=== PATIENT | female | born 1995 ===

== ENCOUNTER 2016-09-06 15:28 | Emergency (ER) | payer OTHER ==
[2016-09-06 16:05] VITALS: BP 128/74; PULSE 89; RESP 16; TEMP 98; O2SAT 98
--- NOTE | 2016-09-06 17:11 | RAD ---
PROCEDURE: Left Foot Radiographs. HISTORY: INJURY OF FOOT COMPARISON: None. FINDINGS: BONES: Nondisplaced fracture of the 5th metatarsal. JOINTS: Normal. SOFT TISSUES: Normal. OTHER FINDINGS: None. IMPRESSION: Nondisplaced fracture of the 5th metatarsal.
--- NOTE | 2016-09-06 17:48 | ED PDOC ---
Lower Extremity Pain/Injury Time Seen by Provider: 09/06/16 16:45 Chief Complaint (Nursing): Lower Extremity Problem/Injury Chief Complaint (Provider): Lower Extremity Injury History Per: Patient History/Exam Limitations: no limitations Onset/Duration Of Symptoms: Days (1x) Current Symptoms Are (Timing): Still Present Severity: Moderate Additional Complaint(s): 21 year old female with no pertinent medical history is sent to the ED by her PCP for a left foot fracture. She reports that she tripped and fell yesterday and she has had left foot pain since then. She is able to to ambulate with pain. She reports going to her PCP yesterday, who took and XRay and found that she had a left foot fracture and instructed her to go to the ED. PMD: Trina Burnham MD Past Medical History Reviewed: Historical Data, Nursing Documentation, Vital Signs Vital Signs: Last Vital Signs Temp 98.0 F 09/06/16 16:02 Pulse 89 09/06/16 16:02 Resp 16 09/06/16 16:02 BP 128/74 09/06/16 16:02 Pulse Ox 98 09/06/16 16:02 - Medical History PMH: No Chronic Diseases - Surgical History Surgical History: No Surg Hx - Family History Family History: States: Unknown Family Hx - Social History Alcohol: None Drugs: Denies - Home Medications Home Medications: Ambulatory Orders Medication Instructions Recorded Ibuprofen [Motrin] 600 mg PO Q8 PRN #21 tab 09/06/16 Non-Formulary 1 ea .ROUTE DAILY #1 ea 09/06/16 - Allergies Allergies/Adverse Reactions: Allergies Allergy/AdvReac Type Severity Reaction Status Date / Time No Known Allergies Allergy Verified 09/06/16 16:02 Review of Systems Musculoskeletal: Positive for: Foot Pain (left foot) Physical Exam - Reviewed Nursing Documentation Reviewed: Yes Vital Signs Reviewed: Yes - Physical Exam Appears: Positive for: Well, Non-toxic, No Acute Distress Head Exam: Positive for: ATRAUMATIC, NORMOCEPHALIC Skin: Positive for: Normal Color, Warm, Dry Cardiovascular/Chest: Positive for: Regular Rate, Rhythm Respiratory: Positive for: Normal Breath Sounds. Negative for: Respiratory Distress Extremity: Positive for: Swelling (swelling on the lateral aspect of the left foot. mild ecchymosis noted.) - ECG O2 Sat by Pulse Oximetry: 98 (RA) Pulse Ox Interpretation: Normal - Progress ED Course And Treament: seen by podiatry resident Given a crutches and boot. Patient to f/u with [facility] this week Medical Decision Making Medical Decision Makin:45 Initial impression: 21 year old female with a left foot fracture/ Initial plan: * Reviewed patient's XRay from PCP. XRay shows a non displaced 5th metatarsal fracture. * Discussed case with podiatry resident who requested new XRays of patient's left foot * XRay foot left 3 views * reevaluation 17:10 XRay foot left 3 views read and reviewed by radiologist. FINDINGS: BONES: Nondisplaced fracture of the 5th metatarsal. JOINTS: Normal. SOFT TISSUES: Normal. OTHER FINDINGS: None. IMPRESSION: Nondisplaced fracture of the 5th metatarsal. Scribe Attestation: Documented by Lorenza Araujo, acting as a scribe for Lilia Schmidt PA-C. Provider Scribe Attestation: All medical record entries made by the Scribe were at my direction and personally dictated by me. I have reviewed the chart and agree that the record accurately reflects my personal performance of the history, physical exam, medical decision making, and the department course for this patient. I have also personally directed, reviewed, and agree with the discharge instructions and disposition. Disposition - Clinical Impression Clinical Impression: Foot fracture - Patient ED Disposition Is Patient to be Admitted: No - Disposition Referrals: Ramakrishna Garner DPM [Staff Provider] - Disposition: Routine/Home Disposition Time: 18:49 Condition: FAIR Prescriptions: Ibuprofen [Motrin] 600 mg PO Q8 PRN #21 tab PRN Reason: Pain, Mild (1-3) Non-Formulary 1 ea .ROUTE DAILY #1 ea Instructions: Foot Fracture in Adults (ED)
--- NOTE | 2016-09-06 17:55 | CP.PCM.CON ---
History of Present Illness - History of Present Illness History of Present Illness: 21 year old female present to ED for left foot pain and swelling following traumatic misstep suffered yesterday evening. Pt reports she had mild pain and discomfort, but could bear weight. Went to sleet after applying Beng[place] cream to painful area. Awoke this morning with pain a mild swelling. Proceeded with daily activity until pain and swelling became more prominent. At this time she decided to seek medical attention. Pt denies using any oral NSAID or analgesic. Grades pain a 4/10 at peak and con tolerate the pain. PMH: Denies PSH: None All: NKDA Meds: None Social Hx: Denies tobacco use, street drug use. alcohol consumption Past Patient History - Past Social History Smoking Status: Never Smoked - PSYCHIATRIC Hx Substance Use: No - SURGICAL HISTORY Hx Surgeries: No Meds Home Medications: Home Medication List Medication Instructions Recorded Confirmed Type Ibuprofen [Motrin] 600 mg PO Q8 PRN #21 tab 09/06/16 Rx Non-Formulary 1 ea .ROUTE DAILY #1 ea 09/06/16 Rx Allergies/Adverse Reactions: Allergies Allergy/AdvReac Type Severity Reaction Status Date / Time No Known Allergies Allergy Verified 09/06/16 16:02 Physical Exam - Constitutional Appears: Well, Non-toxic, No Acute Distress - Extremities Exam Additional comments: Lower extremity focused. VASC: DP and PT pulses fully palpable bilaterally, graded 3/4, stronger on right compared to left. Temperature gradient runs warm to cool proximal to distal WNL. Negative calf tenderness bilaterally. DERM: No open wounds lesion or macerations noted bilaterally. Left foot lateral midfoot mild intensity ecchymosis noted with underlying localized edema. NEURO: Protective snsation grossly intact bilaterally. MUSCK: Tenderness upon palpation to left lateral foot, overlying 5th metatarsal , and pain on ROM of 5th metatarsal-phalangeal joint. No limitation or pain to ankle or other major pedal joints. Pedal muscle strength is graded 5/5 to all 4 major pedal muscle groups. - Neurological Exam Neurological exam: Alert, Oriented x3 - Psychiatric Exam Psychiatric exam: Normal Affect, Normal Mood Results - Vital Signs Recent Vital Signs: Last Vital Signs Temp 98.0 F 09/06/16 16:02 Pulse 89 09/06/16 16:02 Resp 16 09/06/16 16:02 BP 128/74 09/06/16 16:02 Pulse Ox 98 09/06/16 17:48 Assessment & Plan - Assessment and Plan (Free Text) Assessment: 27 year old female with left closed, incomplete 5th metatarsal fracture secondary to trauma. Plan: Pt evaluated and treated. Charts, labs, and vitals reviewed. Discussed details with attending Dr. Garner, who endorsed the following plan. - X-rays reviewed: 5th metatarsal shaft fracture noted. - Applied NASRA compression w/ post-op shoe. Pt to be partial weightbearing to left heel foot using axillary crutches. - Pt prescribed CAM Boot for use to left lower extremity, upon acquiring the boot pt can transition to boot for ambulation with parital weightbearing as tolerated without need of crutches. - NSAIDS per ED physician. Pt to follow-up with Dr. Garner in office within 1 week. - Date & Time Date: 09/06/16 Time: 06:10
== END 2016-09-06 18:56 | disposition home or self-care (01) ==
LOC: H.ER 15:28
DX: S92.352A Displaced fracture of fifth metatarsal bone, left foot, initial encounter for closed fracture (principal); X50.9XXA Other and unspecified overexertion or strenuous movements or postures, initial encounter; Y92.89 Other specified places as the place of occurrence of the external cause